=== PATIENT | female | born 1970 | race American Indian/Alaskan Native ===

== ENCOUNTER 2016-09-24 06:50 | Emergency (ER) | payer SELFPAY ==
[2016-09-24 07:36] LABS: Basophils % (Auto) 1.1 % (0.0-1.8); Eosinophils % (Auto) 5.1 % (0.0-4.3); Hematocrit 36.8 % (30.3-42.9); Hemoglobin 12.1 gm/dl (10.1-14.3); Mean Corpuscular HGB Conc 33 % (30-34); Mean Corpuscular Hemoglobin 33 pg (28-32); Mean Corpuscular Volume 100 fl (79-97); Platelet Count 275 K/mm3 (140-440); Red Blood Count 3.68 M/mm3 (3.65-5.03); Red Cell Distribution Width 13.4 % (13.2-15.2); White Blood Count 7.3 K/mm3 (4.5-11.0)
[2016-09-24 07:52] LABS: Anion Gap 18 mmol/L; BUN/Creatinine Ratio 17.77; Blood Urea Nitrogen 16 mg/dL (7-17); Calcium 8.6 mg/dL (8.4-10.2); Carbon Dioxide 25 mmol/L (22-30); Chloride 101.4 mmol/L (98-107); Glucose 98 mg/dL (65-100); Potassium 3.9 mmol/L (3.6-5.0); Sodium 140 mmol/L (137-145)
[2016-09-24] MEDS ORDERED: TORADOL IV ONE (12:33)
[2016-09-24] MEDS ORDERED: ULTRAM PO ONE (12:33)
[2016-09-24] MEDS ORDERED: PEPCID IV ONE (12:33)
--- NOTE | 2016-09-24 15:07 | Emergency Department Report ---
ED Chest Pain HPI - General Chief Complaint: Chest Pain Stated Complaint: CHEST PAIN/SOB Time Seen by Provider: 09/24/16 12:24 Source: patient Mode of arrival: Ambulatory Limitations: No Limitations - History of Present Illness Initial Comments: 46-year-old female the past medical history of previous tubal ligation presents to the hospital complaining of chest pain and shortness of breath 3 days. Pain is in the middle and left-sided chest and radiates to the back. Pain is intermittent, sharp, rated 10/10 in intensity. Pain is worse with cough, sneezing, or deep inspiration. His complains a recent runny nose and intermittent headache without fever, calf tenderness, recent travel, history of PE/DVT. Severity scale (0 -10): 8 - Related Data Previous Rx's Medication Instructions Recorded Last Taken Type Ibuprofen [Motrin] 600 mg PO Q8H PRN #30 tablet 09/24/16 Unknown Rx traMADol [Ultram 50 MG tab] 50 mg PO Q6HR PRN #20 tablet 09/24/16 Unknown Rx Allergies Allergy/AdvReac Type Severity Reaction Status Date / Time No Known Allergies Allergy Unverified 09/24/16 07:18 TEX score - Tex Score Age > 65: (0) No Aspirin use within the Past 7 Days: (0) No 3 or more CAD Risk Factors: (0) No 2 or more Angina events in past 24 hrs: (0) No Known CAD with more than 50% Stenosis: (0) No Elevated Cardiac Markers: (0) No ST Deviation Greater than 0.5mm: (0) No TEX Score: 0 ED Review of Systems ROS: Stated complaint: CHEST PAIN/SOB Other details as noted in HPI Comment: All other systems reviewed and negative Other: Constitutional: No fevers chills Eyes: No eye pain visual changes ENT: No ear pain or throat pain Neck: Denies pain Respiratory: Denies cough wheezing GI: Denies abdominal pain, nausea, vomiting, diarrhea : Denies dysuria, urinary frequency, or urgency Musculoskeletal: Denies back pain Skin: Denies rash, lesions, erythema Neurologic: Denies headache, numbness, weakness Psychiatric: Denies suicidal ideation, hallucinations ED Past Medical Hx - Past Medical History Previous Medical History?: No - Surgical History Past Surgical History?: Yes Additional Surgical History: Tubal ligation - Social History Smoking Status: Never Smoker Substance Use Type: None - Medications Home Medications: Home Medications Medication Instructions Recorded Confirmed Last Taken Type Ibuprofen [Motrin] 600 mg PO Q8H PRN #30 tablet 09/24/16 Unknown Rx traMADol [Ultram 50 MG tab] 50 mg PO Q6HR PRN #20 tablet 09/24/16 Unknown Rx ED Physical Exam - General Limitations: No Limitations - Other Other exam information: General: No limitations, patient is alert in no acute distress Head exam: Atraumatic, normocephalic Eyes exam: Normal appearance, pupils equal reactive to light, extraocular movements intact ENT: Moist mucous membrane, normal oropharynx Neck exam: Normal inspection, full range of motion, no meningismus nontender Respiratory exam: Clear to auscultation bilateral, no wheezes, rales, crackles. Anterior and left-sided chest wall tenderness Cardiovascular: Normal rate and rhythm Abdomen: Soft, nondistended, and nontender, with normal bowel sounds, no rebound, or guarding Extremity: Full range of motion normal inspection no deformity, no calf tenderness or edema Back: Normal Inspection, full range of motion, no tenderness Neurologic: Alert, oriented x3, cranial nerves intact, no motor or sensory deficit Psychiatric: normal affect, normal mood ED Course Vital Signs 09/24/16 09/24/16 09/24/16 07:12 10:34 10:35 Temperature 98.1 F Pulse Rate 81 78 69 Respiratory 18 14 13 Rate Blood Pressure 133/73 Blood Pressure 113/72 [Left] O2 Sat by Pulse 100 100 100 Oximetry 09/24/16 09/24/16 09/24/16 10:44 10:45 11:00 Temperature Pulse Rate 76 76 Respiratory 13 14 19 Rate Blood Pressure 133/73 146/85 Blood Pressure [Left] O2 Sat by Pulse 100 85 90 Oximetry 09/24/16 09/24/16 09/24/16 11:15 11:30 11:45 Temperature Pulse Rate 89 71 72 Respiratory 11 L 14 17 Rate Blood Pressure 146/85 157/76 157/76 Blood Pressure [Left] O2 Sat by Pulse 100 100 100 Oximetry 09/24/16 09/24/16 12:00 12:15 Temperature Pulse Rate 68 69 Respiratory 14 14 Rate Blood Pressure 157/76 107/66 Blood Pressure [Left] O2 Sat by Pulse 100 100 Oximetry ED Medical Decision Making - Lab Data Result diagrams: 09/24/16 07:22 09/24/16 07:22 Lab Results 09/24/16 09/24/16 09/24/16 Range/Units 07:22 07:22 10:10 WBC 7.3 (4.5-11.0) K/mm3 RBC 3.68 (3.65-5.03) M/mm3 Hgb 12.1 (10.1-14.3) gm/dl Hct 36.8 (30.3-42.9) % MCV 100 H (79-97) fl MCH 33 H (28-32) pg MCHC 33 (30-34) % RDW 13.4 (13.2-15.2) % Plt Count 275 (140-440) K/mm3 Lymph % (Auto) 29.5 (13.4-35.0) % Banks % (Auto) 11.9 H (0.0-7.3) % Eos % (Auto) 5.1 H (0.0-4.3) % Baso % (Auto) 1.1 (0.0-1.8) % Lymph # 2.2 (1.2-5.4) K/mm3 Banks # 0.9 H (0.0-0.8) K/mm3 Eos # 0.4 (0.0-0.4) K/mm3 Baso # 0.1 (0.0-0.1) K/mm3 Seg Neutrophils % 52.4 (40.0-70.0) % Seg Neutrophils # 3.8 (1.8-7.7) K/mm3 D-Dimer (0-234) ng/mlDDU Sodium 140 (137-145) mmol/L Potassium 3.9 (3.6-5.0) mmol/L Chloride 101.4 (98-107) mmol/L Carbon Dioxide 25 (22-30) mmol/L Anion Gap 18 mmol/L BUN 16 (7-17) mg/dL Creatinine 0.9 (0.7-1.2) mg/dL Estimated GFR > 60 ml/min BUN/Creatinine Ratio 17.77 % Glucose 98 (65-100) mg/dL Calcium 8.6 (8.4-10.2) mg/dL Troponin T < 0.010 < 0.010 (0.00-0.029) ng/mL 09/24/16 09/24/16 Range/Units 12:49 13:08 WBC (4.5-11.0) K/mm3 RBC (3.65-5.03) M/mm3 Hgb (10.1-14.3) gm/dl Hct (30.3-42.9) % MCV (79-97) fl MCH (28-32) pg MCHC (30-34) % RDW (13.2-15.2) % Plt Count (140-440) K/mm3 Lymph % (Auto) (13.4-35.0) % Banks % (Auto) (0.0-7.3) % Eos % (Auto) (0.0-4.3) % Baso % (Auto) (0.0-1.8) % Lymph # (1.2-5.4) K/mm3 Banks # (0.0-0.8) K/mm3 Eos # (0.0-0.4) K/mm3 Baso # (0.0-0.1) K/mm3 Seg Neutrophils % (40.0-70.0) % Seg Neutrophils # (1.8-7.7) K/mm3 D-Dimer 195.60 (0-234) ng/mlDDU Sodium (137-145) mmol/L Potassium (3.6-5.0) mmol/L Chloride (98-107) mmol/L Carbon Dioxide (22-30) mmol/L Anion Gap mmol/L BUN (7-17) mg/dL Creatinine (0.7-1.2) mg/dL Estimated GFR ml/min BUN/Creatinine Ratio % Glucose (65-100) mg/dL Calcium (8.4-10.2) mg/dL Troponin T < 0.010 (0.00-0.029) ng/mL - EKG Data -: EKG Interpreted by Me (sinus rhythm rate 77 left atrial enlargement no ST elevation CO) - EKG Data When compared to previous EKG there are: no significant change (compared to ) - Medical Decision Making Patient has a normal d-dimer. Unremarkable EKG and labs. Chest pain appears to be musculoskeletal in origin since it is reproduced with chest wall movement and palpation. She will be treated symptomatically - Differential Diagnosis atypical chest pain, PE, CO, costochondritis Critical Care Time: No Critical care attestation.: If time is entered above; I have spent that time in minutes in the direct care of this critically ill patient, excluding procedure time. ED Disposition Clinical Impression: Costochondritis, acute Disposition: DISCHARGED TO HOME OR SELFCARE Is pt being admited?: No Does the pt Need Aspirin: No Condition: Stable Instructions: Costochondritis (ED) Additional Instructions: Take the medication as prescribed. Return if symptoms worsen. Follow-up with your doctor or the doctor/clinic provided Prescriptions: Ibuprofen [Motrin] 600 mg PO Q8H PRN #30 tablet PRN Reason: Pain traMADol [Ultram 50 MG tab] 50 mg PO Q6HR PRN #20 tablet PRN Reason: Pain Referrals: PRIMARY CAREMD [Primary Care Provider] - 3-5 Days ELBERT ACOSTA MD [Staff Physician] - 3-5 Days [facility] [Provider Group] - 3-5 Days Forms: Work/School Release Form(ED) Time of Disposition: 15:24
[2016-09-24 16:09] VITALS: BP 138/81
--- NOTE | 2016-09-25 07:17 | XRay Report ---
CHEST 2 VIEWS INDICATION: Chest pain. COMPARISON: None similar at this institution. FINDINGS: PA and lateral chest radiographs demonstrate normal cardiomediastinal silhouette. Clear lungs. Intact bones. CONCLUSION: No acute disease in the chest. Thank you for the opportunity to participate in this patient's care.
== END 2016-09-24 16:09 | disposition home or self-care (01) ==
LOC: ED 06:50
DX: M94.0 Chondrocostal junction syndrome [Tietze] (principal); Z98.51 Tubal ligation status
CPT/HCPCS: 36415; 71020; 80048; 84484; 85025; 85379; 93005; 93010; 96374; 96375; 99285; J1885

== ENCOUNTER 2016-12-28 15:00 | Emergency (ER) | payer SELFPAY ==
[2016-12-28 15:40] VITALS: BP 125/73
--- NOTE | 2016-12-28 17:36 | Emergency Department Report ---
Entered by JOCELYN JAY, acting as scribe for BRANDY DEL CID NP. ED Upper Extremity Inj HPI - General Chief Complaint: Extremity Injury, Upper Stated Complaint: SWOLLEN RIGHT HAND Time Seen by Provider: 12/28/16 17:10 Source: patient Mode of arrival: Ambulatory Limitations: No Limitations - History of Present Illness Initial Comments: 46 year old female presents to ED with c/o right hand swelling for 2 weeks. Patient states she is unaware how symptoms started, she woke up this morning when she noticed the swelling. 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 Patient denies SOB, chest pain, headache, fever , chills, nausea, or vomiting. Patient has SHx of Tubal ligation and FHx of arthritis. NKDA. MONTEZ Complaint: Injury to:: right, hand Other Extremity Injury: Fingers: Right, Hand: Right Other Injuries: none Handedness: right Place: work Improves With: none Worsens With: movement of extremity Context: direct blow Associated Symptoms: denies other symptoms. denies: weakness, numbness, neck pain, suspects foreign body, nausea/vomiting, heard/felt popping sensat - Related Data Previous Rx's Medication Instructions Recorded Last Taken Type Ibuprofen [Motrin] 600 mg PO Q8H PRN #30 tablet 09/24/16 Unknown Rx traMADol [Ultram 50 MG tab] 50 mg PO Q6HR PRN #20 tablet 09/24/16 Unknown Rx Allergies Allergy/AdvReac Type Severity Reaction Status Date / Time No Known Allergies Allergy Unverified 09/24/16 07:18 ED Review of Systems Comment: All other systems reviewed and negative Constitutional: denies: chills, fever, weakness Respiratory: denies: cough, shortness of breath, wheezing Cardiovascular: denies: chest pain, palpitations Gastrointestinal: denies: abdominal pain, nausea, vomiting, diarrhea Musculoskeletal: denies: back pain, joint swelling, arthralgia Skin: denies: rash, lesions Neurological: denies: headache, weakness, paresthesias ED Past Medical Hx - Past Medical History Previous Medical History?: Yes Additional medical history: 'collagen flare up" - Surgical History Past Surgical History?: Yes Additional Surgical History: Tubal ligation, Mirena inserted - Social History Smoking Status: Former Smoker Substance Use Type: Alcohol, Non Opiate Pain - Medications Home Medications: Home Medications Medication Instructions Recorded Confirmed Last Taken Type Ibuprofen [Motrin] 600 mg PO Q8H PRN #30 tablet 09/24/16 Unknown Rx traMADol [Ultram 50 MG tab] 50 mg PO Q6HR PRN #20 tablet 09/24/16 Unknown Rx ED Physical Exam - General Limitations: No Limitations General appearance: alert, in no apparent distress - Head Head exam: Present: atraumatic, normocephalic - Neck Neck exam: Present: normal inspection, full ROM. Absent: tenderness, meningismus - Respiratory Respiratory exam: Present: normal lung sounds bilaterally. Absent: respiratory distress, wheezes, rales, rhonchi, stridor - Cardiovascular Cardiovascular Exam: Present: regular rate, normal rhythm, normal heart sounds ( s1/s2). Absent: systolic murmur, diastolic murmur, rubs, gallop - GI/Abdominal GI/Abdominal exam: Present: soft, normal bowel sounds. Absent: distended, tenderness, guarding, rebound, rigid, diminished bowel sounds - Extremities Exam Extremities exam: Present: normal inspection, full ROM, normal capillary refill. Absent: tenderness, pedal edema, joint swelling - Expanded Upper Extremity Exam Right Hand Wrist exam: Present: normal inspection, full ROM, tenderness (TTP dorsal, entire PIP joint, right 5th finger tenderness, and pain to DIP). Absent: swelling, abrasion, laceration, ecchymosis, deformity, crepidus, dislocation, erythema, amputation, nail avulsion, subungual hematoma Neuro motor exam: Present: wrist extension intact, thumb opposition intact, thumb IP flexion intact, thumb adduction intact, fingers 2-5 abduction intact Neurosensory exam: Present: 2-point discrimination (present), radial nerve intact, ulnar nerve intact, median nerve intact Vascular: Present: normal capillary refill, radial pulse (2+ radial pulse), brachial pulse (2+), ulnar pulse (2+). Absent: vascular compromise, pulse deficit radial art, pulse deficit ulnar art, pulse deficit brachial art - Back Exam Back exam: Present: normal inspection, full ROM. Absent: tenderness, paraspinal tenderness, vertebral tenderness - Neurological Exam Neurological exam: Present: alert, oriented X3, CN II-XII intact, normal gait, reflexes normal. Absent: motor sensory deficit - Psychiatric Psychiatric exam: Present: normal affect, normal mood - Skin Skin exam: Present: warm, dry, intact, normal color. Absent: rash ED Course Vital Signs 12/28/16 15:36 Temperature 98.5 F Pulse Rate 82 Respiratory 20 Rate Blood Pressure 125/73 O2 Sat by Pulse 98 Oximetry - Reevaluation(s) Reevaluation #1: 12/28/16 17:33 radiology study ordered ED Medical Decision Making - Lab Data Vital Signs 12/28/16 15:36 Temperature 98.5 F Pulse Rate 82 Respiratory 20 Rate Blood Pressure 125/73 O2 Sat by Pulse 98 Oximetry - Radiology Data Radiology results: report reviewed No acute fractures noted - Medical Decision Making During the course of ED, radiology study was ordered. The imaging study revealed no acute fractures. Patient sent home with a velcro wrist splint and instructed to follow up with the selective referral given, she verbalized understanding - Differential Diagnosis Right Hand Pain, Right Hand Fracture ED Disposition Clinical Impression: Right hand pain Disposition: DC-01 TO HOME OR SELFCARE Is pt being admited?: No Does the pt Need Aspirin: No Condition: Stable Instructions: Arthralgia (ED) Additional Instructions: Wear wrist splint for comfort. Follow up with the selective referral given at discharge Referrals: PRIMARY CAREMD [Primary Care Provider] - 3-5 Days STEFANIE GOMEZ MD [Staff Physician] - 3-5 Days Forms: Work/School Release Form(ED) Time of Disposition: 19:03 This documentation as recorded by the MISTY bear PEARL,accurately reflects the service I personally performed and the decisions made by MARIA EUGENIA sparrow SABRENA D, NP.
--- NOTE | 2016-12-28 20:24 | XRay Report ---
FINAL REPORT PROCEDURE: XR HAND 3+V RT TECHNIQUE: Three views of the right hand are obtained HISTORY: right hand pain with swelling COMPARISON: No prior studies are available for comparison. FINDINGS: There is mild periarticular calcifications suspected in the 5th MCP joint region. No erosions are seen. No joint space narrowing or osteophytes are seen. No fracture or dislocation is seen. There may be mild soft tissue swelling. IMPRESSION: Mild periarticular calcification is seen associated with the 5th MCP joint. Possible mild changes of gout could cause the appearance.
== END 2016-12-28 19:19 | disposition home or self-care (01) ==
LOC: ED 15:00
DX: M79.641 Pain in right hand (principal); Z87.891 Personal history of nicotine dependence; X58.XXXA Exposure to other specified factors, initial encounter; Y93.89 Activity, other specified; Y92.89 Other specified places as the place of occurrence of the external cause; Y99.8 Other external cause status

== ENCOUNTER 2017-07-20 14:55 | Emergency (ER) | payer OTHER ==
[2017-07-20 15:02] VITALS: BP 150/80
--- NOTE | 2017-07-20 17:07 | Emergency Department Report ---
ED Neck Pain/Injury HPI - General Chief Complaint: Neck Pain/Injury Stated Complaint: LUMP IN THROAT Time Seen by Provider: 07/20/17 16:49 Mode of arrival: Ambulatory Limitations: No Limitations - History of Present Illness Initial Comments: Patient is a 47-year-old Female who is complaining of a small lump on the left submandibular area for approximately 1 week. Patient states there is mild tenderness especially when she puts her head down. Patient denies any fevers or throat headache or trauma. Patient states that the discomfort is present. 3 out of 10 in severity. Patient has no other complaints at this time. - Related Data Previous Rx's Medication Instructions Recorded Last Taken Type Ibuprofen [Motrin] 600 mg PO Q8H PRN #30 tablet 09/24/16 Unknown Rx predniSONE [Deltasone] 20 mg PO QDAY #5 tab 07/20/17 Unknown Rx traMADol [Ultram 50 MG tab] 50 mg PO Q6HR PRN #10 tablet 07/20/17 Unknown Rx Allergies Allergy/AdvReac Type Severity Reaction Status Date / Time No Known Allergies Allergy Unverified 09/24/16 07:18 ED Review of Systems ROS: Stated complaint: LUMP IN THROAT Other details as noted in HPI Comment: All other systems reviewed and negative ED Past Medical Hx - Past Medical History Previous Medical History?: No Additional medical history: 'collagen flare up" - Surgical History Past Surgical History?: Yes Additional Surgical History: Tubal ligation, Mirena inserted - Social History Smoking Status: Never Smoker Substance Use Type: None - Medications Home Medications: Home Medications Medication Instructions Recorded Confirmed Last Taken Type Ibuprofen [Motrin] 600 mg PO Q8H PRN #30 tablet 09/24/16 Unknown Rx predniSONE [Deltasone] 20 mg PO QDAY #5 tab 07/20/17 Unknown Rx traMADol [Ultram 50 MG tab] 50 mg PO Q6HR PRN #10 tablet 07/20/17 Unknown Rx ED Physical Exam - General Limitations: No Limitations General appearance: alert, in no apparent distress - Head Head exam: Present: atraumatic, normocephalic - Eye Eye exam: Present: normal appearance - ENT ENT exam: Present: normal orophraynx, mucous membranes moist, normal external ear exam, other (patient has a small mobile small lymph node in the submandibular area just adjacent to the anterior cervical chain there is no overlying erythema or warmth. Patient has no major pain with palpation. Patient's oropharynx is clear with no erythema.) - Neck Neck exam: Present: normal inspection - Respiratory Respiratory exam: Present: normal lung sounds bilaterally. Absent: respiratory distress - Cardiovascular Cardiovascular Exam: Present: regular rate, normal rhythm. Absent: systolic murmur, diastolic murmur, rubs, gallop - GI/Abdominal GI/Abdominal exam: Present: soft, normal bowel sounds - Extremities Exam Extremities exam: Present: normal inspection - Back Exam Back exam: Present: normal inspection - Neurological Exam Neurological exam: Present: alert, oriented X3 - Psychiatric Psychiatric exam: Present: normal affect, normal mood - Skin Skin exam: Present: warm, dry, intact, normal color. Absent: rash ED Course Vital Signs 07/20/17 14:59 Temperature 98.3 F Pulse Rate 89 Respiratory 16 Rate Blood Pressure 150/80 O2 Sat by Pulse 99 Oximetry ED Medical Decision Making - Medical Decision Making Patient is a 47-year-old female who is presenting with some swelling to A lymph node in the left anterior chain/submandibular area. Patient will be started on a small course of antibiotics and steroids and will be discharged home. Critical care attestation.: If time is entered above; I have spent that time in minutes in the direct care of this critically ill patient, excluding procedure time. ED Disposition Clinical Impression: Lymphadenopathy Disposition: DC-01 TO HOME OR SELFCARE Is pt being admited?: No Does the pt Need Aspirin: No Condition: Stable Instructions: Lymphadenopathy (ED) Prescriptions: predniSONE [Deltasone] 20 mg PO QDAY #5 tab traMADol [Ultram 50 MG tab] 50 mg PO Q6HR PRN #10 tablet PRN Reason: Pain Referrals: PRIMARY CARE,MD [Primary Care Provider] - 3-5 Days
== END 2017-07-20 17:50 | disposition home or self-care (01) ==
LOC: ED 14:55
DX: R59.0 Localized enlarged lymph nodes (principal); Z98.51 Tubal ligation status
CPT/HCPCS: 99282

== ENCOUNTER 2018-05-13 11:11 | Emergency (ER) | payer OTHER ==
[2018-05-13] MEDS ORDERED: IBUPROFEN PO ONE (13:14)
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
[2018-05-13 18:29] VITALS: BP 137/67
== END 2018-05-13 18:46 | disposition home or self-care (01) ==
LOC: ED 11:11
DX: S16.1XXA Strain of muscle, fascia and tendon at neck level, initial encounter (principal); S39.012A Strain of muscle, fascia and tendon of lower back, initial encounter; Z98.51 Tubal ligation status; V89.2XXA Person injured in unspecified motor-vehicle accident, traffic, initial encounter; Y93.89 Activity, other specified; Y99.8 Other external cause status; Y92.410 Unspecified street and highway as the place of occurrence of the external cause
CPT/HCPCS: 72040; 72100; 99283

== ENCOUNTER 2018-05-24 10:37 | Emergency (ER) | payer OTHER ==
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
== END 2018-05-24 12:14 | disposition home or self-care (01) ==
LOC: ED 10:37
CPT/HCPCS: 99282